=== PATIENT | male | born 1975 | race Caucasian/White ===

== ENCOUNTER 2023-03-15 16:06 | Outpatient (AMB) | payer OTHER, SELFPAY ==
[2023-03-15 16:08] VITALS: BP 140/70; PULSE 94; O2SAT 92; BMI 47.1
--- NOTE | 2023-03-15 16:08 | MHC.PC.OV ---
Vital Signs 03/15/23 16:08 Height 5 ft 7 in Weight 301 lb BMI 47.1 BP 140/70 H Blood Pressure Location Lt brachial Position Sitting Pulse 94 Pulse Source Pulse Oximeter Pulse Oximetry (%) 92 Oxygen Delivery Method Room Air Intake Visit Reasons: Annual PE Intake Note: pt is here for physical. Can Marker Required: No Accompanied by: Self / Same As Patient Allergies No Known Allergies Allergy (Verified 03/15/23 16:18) Medication List - Last Reconciled 03/15/23 by López Perez PA-C dulaglutide (Trulicity) mg subcut insulin glargine (Lantus Solostar U-100 Insulin) 80 units subcut QPM insulin lispro (Humalog KwikPen (U-100) Insulin) 5 units subcut TID lisinopril 30 mg PO DAILY 90 days metformin 1,000 mg PO BID simvastatin 20 mg PO DAILY 90 days Tobacco use date assessed: 03/15/23 Dental Screening Dental Screen Date: 03/15/23 Did you have a dental visit in the last 12 months?: No Did you have a dental problem in the last 6 months where you did not have access to dental care?: No Was dental information given to patient?: Patient has dentist HPI Annual PE HPI Details Blaise is a 47 year old male here today for routine annual physical ? Patient has a past medical history significant for type 2 diabetes, hypertension, morbid obesity, hyperlipidemia. .. Type 2 diabetes:?Now followed by an business unit controller and has decent control of his blood sugars.? Most recent A1c done at his endocrinology office at 7.9. Unfortunately has not lost any weight. ?Still has adjustments in afternoon insulin dosing due to poor diet..? He continues to follow printed circuit boards inspector every 10 weeks due to his retinopathy. .. Hypertension:? At last visit we discussed his elevated blood pressures and increased his lisinopril to 30 mg. Today's blood pressure slightly elevated office. ? He reports that home is blood pressures are 120s to 130 systolic.? He denies any headaches, chest discomfort or shortness of breath.? He does report at times having vision issues to which she sees an printed circuit boards inspector and gets injections in his eyes . hyperLipidemia:? Continues on simvastatin without side effect.? Most recent LDL-? 83 Does have mild microalbuminuria. .. Obesity:? He? does understand his BMI is well above 40 has been having difficulty with reducing his weight.? 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 Colon cancer screen: Will refer to [facility] GI Vaccines: Up-to-date COVID vaccine, flu vaccine, tetanus [facility] Surgical History No pertinent past surgical history Social History (Updated 03/15/23 @ 16:24 by López Perez PA-C) Housing: House Alcohol intake: current Alcohol intake frequency: holidays/special occasions only Alcohol type: beer Patient Tobacco Use Status: Never used Tobacco e-Cigarette/Vaping Use: Never Used Second Hand Smoke Exposure: No service: No Current occupational status: employed Current occupation: [employer] Cognitive needs: No Hearing needs: No Vision needs: No Questionnaire PHQ-9 Over the last 2 weeks, how often have you been bothered by any of the following problems? 1. Little interest or pleasure in doing things: not at all 2. Feeling down, depressed, or hopeless: not at all 3. Trouble falling or staying asleep, or sleeping too much: not at all 4. Feeling tired or having little energy: not at all 5. Poor appetite or overeating: not at all 6. Feeling bad about yourself - or that you are a failure or have let yourself or your family down: not at all 7. Trouble concentrating on things, such as reading the newspaper or watching television: not at all 8. Moving or speaking so slowly that other people could have noticed. Or the opposite - being so fidgety or restless that you have been moving around a lot more than usual: not at all 9. Thoughts that you would be better off or of hurting yourself in some way: not at all Total score: 0 Depression Screening Interpretation: Negative Depression Screening Done: Yes 19613 - PHQ-9 Billing: Yes Source: Developed by Drs. Matt Gonzalez, Lissette Garcia, Pj Mcmillan and colleagues, with an educational tommy from [employer]. Thrive Questionnaire Date Thrive assessed: 03/15/23 I am a: Patient What is your living situation today?: I have a steady place to live Within the past 12 months, did the food you bought not last and you didn't have the money to get more?: Never true Within the past 12 months, did you worry whether your food would run out before you got money to buy more?: Never true Do you have trouble paying for medicines?: No Do you have trouble getting transportation to medical appointments?: No Do you have trouble paying your heating and electricity bill?: No Do you have trouble taking care of your child, family member or friend?: No Do you have trouble with day-to-day activities such as bathing, preparing meals, shopping, managing finances, etc.?: No Are you currently unemployed and looking for a job?: No Are you interested in more education?: No Please select the resources that you would like help with: None Currently or been in a relationship where the following occur: no concerns reported AUDIT C Alcohol Use Questionnaire (AUDIT-C) 1. How often do you have a drink containing alcohol?: Monthly or less 2. How many drinks containing alcohol do you have on a typical day when you are drinking?: 1 or 2 3. How often do you have six or more drinks on one occasion?: Never Total Score: 1 HARISH-7 AMB Questionnaire HARISH-7 Date HARISH - 7 assessed: 03/15/23 Feeling nervous, anxious, or on edge: 0 = Not at all Not being able to stop or control worryin = Not at all Worrying too much about different things: 0 = Not at all Trouble relaxin = Not at all Being so restless that it is hard to sit still: 0 = Not at all Becoming easily annoyed or irritable: 0 = Not at all Feeling afraid as if something awful might happen: 0 = Not at all Total HARISH-7 score (0-4 normal; 5-9 mild; 10-14 moderate; 15-21 severe): 0 Source: Developed by Drs. Matt Gonzalez, Lissette Garcia, Pj Mcmillan and colleagues, with an educational tommy from [employer]. HARISH-7 Assessment Billing HARISH-7 Assessment Tool: HARISH-7 Assessment 35048 Review of Systems Const Denies body aches, Denies chills, Denies excessive sweating, Denies fatigue, Denies fever(s) and Denies headache(s) Eyes Denies blurry vision ENT Denies dysphagia, Denies vertigo, Denies dizziness, Denies headache(s), Denies hearing loss and Denies tinnitus Card Denies chest pain, Denies chest pain with activity, Denies syncope, Denies irregular heart rhythm and Denies dyspnea Resp Denies chest congestion, Denies cough, Denies hemoptysis, Denies dyspnea and Denies wheezing GI Denies abdominal pain, Denies melena, Denies hematochezia, Denies coffee ground emesis, Denies dysphagia, Denies diarrhea, Denies nausea and Denies vomiting Denies difficulty urinating, Denies dysuria, Denies urinary frequency, Denies urinary hesitancy and Denies urinary urgency Musc Denies arthralgias, Denies limited range of motion, Denies muscle cramps and Denies muscle weakness Skin/Breast Denies rash and Denies skin ulcer Neuro Denies Abnormal speech present, Denies confusion, Denies vertigo, Denies dizziness, Denies syncope, Denies headache(s), Denies memory loss and Denies seizure-like activity Psych Denies anxiety, Denies confusion, Denies depression, Denies memory loss, Denies panic attacks and Denies paranoia Endo Denies excessive sweating, Denies fatigue, Denies flushing, Denies polydipsia and Denies polyuria Aller/Immun Denies wheezing Physical exam (Primary Care) Vital Signs: Last Vital Signs Pulse 94 03/15/23 16:08 BP 140/70 H 03/15/23 16:08 Pulse Ox 92 03/15/23 16:08 Oxygen Delivery Method Room Air 03/15/23 16:08 BMI result Body Mass Index 47.1 BMI Assessment/Plan discussion: High Tobacco/Smoking Status: Tobacco use Status Tobacco use date assessed 03/15/23 03/15/23 16:14 Patient Tobacco Use Status Never used Tobacco 03/15/23 16:24 Tobacco use type 08/21/22 09:38 e-Cigarette/Vaping Use Never Used 03/15/23 16:24 PHQ-9: PHQ-9 Score PHQ-9: Total score 0 03/15/23 16:32 Depression Screening Interpretation: Negative Thrive Assessment: Date of Thrive Assessment Date Thrive assessed 03/15/23 03/15/23 16:14 Currently or been in a relationship where the following occur: no concerns reported Const Other: MORBIDLY OBESE General: cooperative, comfortable, no acute distress, alert and awake; No confusion Orientation/consciousness: oriented to person, oriented to place, patient oriented x3 and No confusion HENMT Head: Yes normocephalic Ears: external ears normal and TM's normal bilaterally Face and sinus: No sinus tenderness Mouth: Normal oral and palatal mucosa present and tongue normal Teeth and gingiva: dentition normal and gingiva normal Throat: Yes posterior oropharynx normal, Yes tonsils normal and Yes uvula midline Eyes Conjunctivae: conjunctivae normal Sclerae: sclerae normal Pupils: Equal, round and reactive pupils present EOM: EOMs intact bilaterally Direct Ophthalmoscopy: No no photophobia Neck Neck: Yes no lymphadenopathy, No tender and Yes no JVD Thyroid: Thyroid normal Carotids: no bruits Chest Chest palpation & inspection: no tenderness Resp Effort & Inspection: normal respiratory effort, no audible wheezes, not labored and no stridor Auscultation: no crackles, no rales, no rhonchi and no wheezes Cardio Jugular venous distension: no JVD Rate: regular rate, not bradycardic and not tachycardic Rhythm: regular rhythm Bruits: no carotid bruits Peripheral pulses: Peripheral pulses 2+ throughout GI Inspection: Yes normal to inspection, No abdominal wall ecchymosis and No visible herniation Palpation (GI): Soft to palpation, nontender, no guarding, not rigid and No hepatosplenomegaly present Auscultation: normoactive bowel sounds General: Yes no CVA tenderness Back/Spine/Pelvis Back: no CVA tenderness and No back tenderness Cervical Spine: cervical ROM normal Thoracic/Lumbar Spine: thoracic and lumbar spine normal to inspection, straight leg raise negative bilaterally, No thoraco-lumbar ROM limited and No lumbar spinal tenderness Skin Lesions: no lesions Rashes: no rashes Wounds: no wounds Neuro General: oriented to person, oriented to place, patient oriented x3, CN's II-XI intact bilaterally and No confusion Cranial nerves: Yes Equal, round and reactive pupils present and Yes Normal accommodation reflex present Cognition (Neuro): normal cognition Speech: No Abnormal speech present Gait exam (Neuro): Normal gait present Motor exam (neuro): 5/5 motor strength present throughout Extrem Right upper extremity: full ROM; no cyanosis Left upper extremity: full ROM; no cyanosis Right lower extremity: no edema Left lower extremity: no edema Psych Appearance: grossly normal Mental Status: mental status grossly normal Affect: normal affect Attitude: cooperative Thought process: Normal thought process present Assessment and Plan Assessment & Plan (1) Annual physical exam: Code(s): Z00.00 - Encounter for general adult medical examination without abnormal findings (2) DMII (diabetes mellitus, type 2): Code(s): E11.9 - Type 2 diabetes mellitus without complications Qualifiers: Diabetes mellitus complication detail: with microalbuminuria Diabetes mellitus complication status: with kidney complications Diabetes mellitus termite control service representative insulin use: with mcc use Qualified Code(s): E11.29 - Type 2 diabetes mellitus with other diabetic kidney complication; R80.9 - Proteinuria, unspecified; Z79.4 - group home (current) use of insulin Plan: Patient followed by Endocrinology, reports his blood sugars are 90s in the a.m. and 130s to 160s in the afternoons. Continues on fairly high doses of insulin and highest dose Trulicity.. Goal A1c to be below 7.0 (3) HTN (hypertension): Code(s): I10 - Essential (primary) hypertension Qualifiers: Hypertension type: primary hypertension Qualified Code(s): I10 - Essential (primary) hypertension Plan: Patient's blood pressure elevated today in office. Blood pressures have been better since increasing his lisinopril dose. He reports home readings are 130s systolic, 70s diastolic. He does feel nervous coming into MD appointment and feels that his blood pressure elevated is due to white coat hypertension. Will continue his current dose of lisinopril 30mg. Goal blood pressure to be below 140/90 (4) HLD (hyperlipidemia): Code(s): E78.5 - Hyperlipidemia, unspecified Qualifiers: Hyperlipidemia type: mixed hyperlipidemia Qualified Code(s): E78.2 - Mixed hyperlipidemia Plan: Patient's most recent fasting lipid panel acceptable with LDL 80. Goal LDL to remain below 100 (5) Obese: Code(s): E66.9 - Obesity, unspecified Qualifiers: Body mass index: BMI 45.0-49.9 Obesity classification: adult class 3 (BMI >= 40) Obesity type: due to excess calories Serious obesity comorbidity presence: with serious comorbidity Qualified Code(s): E66.01 - Morbid (severe) obesity due to excess calories; Z68.42 - Body mass index [BMI] 45.0-49.9, adult Plan: Patient's BMI above 40 and he does understand he needs to continue to work on better eating habits and being more physically active to reduce his weight. (6) Colon cancer screening: Code(s): Z12.11 - Encounter for screening for malignant neoplasm of colon Plan: Willing to do colonoscopy. Needs to get his service done at [facility]. Orders: Orders Lipid Panel 03/15/23 E78.2 - Mixed hyperlipidemia Microalbumin, Random (w Creat) 03/15/23 E11.29 - Type 2 diabetes mellitus with other diabetic kidney complication, R80.9 - Proteinuria, unspecified, Z79.4 - adjunct faculty for medical terminology (current) use of insulin Comprehensive [place]. Panel Fast 03/15/23 E11.29 - Type 2 diabetes mellitus with other diabetic kidney complication, R80.9 - Proteinuria, unspecified, Z79.4 - adjunct faculty for medical terminology (current) use of insulin Complete Blood Count no Diff 03/15/23 E11.29 - Type 2 diabetes mellitus with other diabetic kidney complication, R80.9 - Proteinuria, unspecified, Z79.4 - group home (current) use of insulin Referrals Gastroenterology Referral Z12.11 - Encounter for screening for malignant neoplasm of colon Coding Level of Care Code Est Pt Prev Care 40-64y([id number]) Diagnoses Annual physical exam Z00.00 Type 2 diabetes mellitus with microalbuminuria, with long-term current use of insulin E11.29; R80.9; Z79.4 Diabetes mellitus complication detail: with microalbuminuria Diabetes mellitus complication status: with kidney complications Diabetes mellitus termite control service representative insulin use: with termite control service representative use Primary hypertension I10 Hypertension type: primary hypertension Mixed hyperlipidemia E78.2 Hyperlipidemia type: mixed hyperlipidemia Class 3 severe obesity due to excess calories with serious comorbidity and body mass index (BMI) of 45.0 to 49.9 in adult E66.01; Z68.42 Body mass index: BMI 45.0-49.9 Obesity classification: adult class 3 (BMI >= 40) Obesity type: due to excess calories Serious obesity comorbidity presence: with serious comorbidity Colon cancer screening Z12.11 Additional Codes HARISH-7 Assessment Billing - HARISH-7 Assessment Tool: HARISH-7 Assessment [id number] ([id number])
== END 2023-03-15 16:56 | disposition home or self-care (01) ==
PROVIDERS: Visit Provider Physician Assistant
DX: Z00.00 Encounter for general adult medical examination without abnormal findings (principal); E11.29 Type 2 diabetes mellitus with other diabetic kidney complication; Z79.4 Long term (current) use of insulin; E66.01 Morbid (severe) obesity due to excess calories; Z68.42 Body mass index [BMI] 45.0-49.9, adult; R80.9 Proteinuria, unspecified; I10 Essential (primary) hypertension; E78.2 Mixed hyperlipidemia; Z12.11 Encounter for screening for malignant neoplasm of colon
CPT/HCPCS: 99396

== ENCOUNTER 2024-03-20 15:18 | Outpatient (AMB) | payer OTHER, SELFPAY ==
[2024-03-20 15:56] VITALS: BP 132/74; PULSE 99; O2SAT 94; BMI 47.2
--- NOTE | 2024-03-20 15:56 | A.OFFPC_ITS ---
Vital Signs 03/20/24 15:56 Height 5 ft 7 in Weight 301 lb 2 oz BMI 47.2 BP 132/74 Blood Pressure Location Lt brachial Position Sitting Pulse 99 Pulse Source Pulse Oximeter Pulse Oximetry (%) 94 Oxygen Delivery Method Room Air Intake Visit Reasons: pe Intake Note: Patient is here today for a physical. 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 Required: No Accompanied by: Self / Same As Patient Allergies No Known Allergies Allergy (Verified 03/20/24 16:05) Medication List - Last Reconciled 03/20/24 by López Perez PA-C dulaglutide (Trulicity) mg subcut insulin glargine (Lantus Solostar U-100 Insulin) 80 units subcut QPM insulin lispro (Humalog KwikPen (U-100) Insulin) 5 units subcut TID lisinopril 30 mg PO DAILY 90 days metformin 1,000 mg PO BID simvastatin 20 mg PO DAILY 90 days Tobacco use date assessed: 03/15/23 Dental Screening Dental Screen Date: 03/15/23 HPI pe HPI Details Blaise is a 48 year old male here today for routine annual physical ? Patient has a past medical history significant for type 2 diabetes, hypertension, morbid obesity, hyperlipidemia. .. Type 2 diabetes:?Now followed by an machine clothing worker at [facility].? Most recent A1c done at his endocrinology office at 8.4. Unfortunately has not lost any weight. He reports he has been out of Trulicity for several months due to ph armacy availability. ?Still has adjustments in afternoon insulin dosing due to poor diet..? 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 .. Hypertension:? At last visit we discussed his elevated blood pressures and increased his lisinopril to 30 mg. Today's blood pressure acceptable in office. ? He reports that home is blood pressures are 120s to 130 systolic.? He denies any headaches, chest discomfort or shortness of breath.? He does report at times having vision issues to which she sees an wholesale parts salesperson and gets injections in his eyes . hyperLipidemia:? Continues on simvastatin without side effect.? Most recent LDL- ? 83 Does have mild microalbuminuria. .. Obesity:? He? does understand his BMI is well above 40 has been having difficulty with reducing his weight.? 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 Colon cancer screen: Trying to get an appointment for [facility]- he reports he is on a waiting list Vaccines: Up-to-date COVID vaccine, flu vaccine, tetanus PFSH Surgical History No pertinent past surgical history Social History Housing: House Alcohol intake: current Alcohol intake frequency: holidays/special occasions only Alcohol type: beer Patient Tobacco Use Status: Never used Tobacco e-Cigarette/Vaping Use: Never Used Second Hand Smoke Exposure: No service: No Current occupational status: employed Current occupation: [employer] Cognitive needs: No Hearing needs: No Vision needs: No Questionnaire PHQ-9 Over the last 2 weeks, how often have you been bothered by any of the following problems? 1. Little interest or pleasure in doing things: not at all 2. Feeling down, depressed, or hopeless: not at all 3. Trouble falling or staying asleep, or sleeping too much: not at all 4. Feeling tired or having little energy: not at all 5. Poor appetite or overeating: not at all 6. Feeling bad about yourself - or that you are a failure or have let yourself or your family down: not at all 7. Trouble concentrating on things, such as reading the newspaper or watching television: not at all 8. Moving or speaking so slowly that other people could have noticed. Or the opposite - being so fidgety or restless that you have been moving around a lot more than usual: not at all 9. Thoughts that you would be better off or of hurting yourself in some way: not at all Total score: 0 Depression Screening Interpretation: Negative Depression Screening Done: Yes 64067 - PHQ-9 Billing: Yes Source: Developed by Drs. Matt Gonzalez, Lissette Garcia, Pj Mcmillan and colleagues, with an educational tommy from [employer]. Thrive Questionnaire Date Thrive assessed: 03/20/24 I am a: Patient What is your living situation today?: I have a steady place to live Within the past 12 months, did the food you bought not last and you didn't have the money to get more?: Never true Within the past 12 months, did you worry whether your food would run out before you got money to buy more?: Never true Do you have trouble paying for medicines?: No Do you have trouble getting transportation to medical appointments?: No Do you have trouble paying your heating and electricity bill?: No Do you have trouble taking care of your child, family member or friend?: No Do you have trouble with day-to-day activities such as bathing, preparing meals, shopping, managing finances, etc.?: No Are you currently unemployed and looking for a job?: No Are you interested in more education?: No Please select the resources that you would like help with: None Currently or been in a relationship where the following occur: No concerns reported THRIVE Score: 0 AUDIT C Alcohol Use Questionnaire (AUDIT-C) 1. How often do you have a drink containing alcohol?: Monthly or less 2. How many drinks containing alcohol do you have on a typical day when you are drinking?: 1 or 2 3. How often do you have six or more drinks on one occasion?: Never Total Score: 1 HARISH-7 AMB Questionnaire HARISH-7 Date HARISH - 7 assessed: 03/20/24 Feeling nervous, anxious, or on edge: 0 = Not at all Not being able to stop or control worryin = Not at all Worrying too much about different things: 0 = Not at all Trouble relaxin = Not at all Being so restless that it is hard to sit still: 0 = Not at all Becoming easily annoyed or irritable: 0 = Not at all Feeling afraid as if something awful might happen: 0 = Not at all Total HARISH-7 score (0-4 normal; 5-9 mild; 10-14 moderate; 15-21 severe): 0 Source: Developed by Drs. Matt Gonzalez, Lissette Garcai, Pj Mcmillan and colleagues, with an educational tommy from [employer]. HARISH-7 Assessment Billing HARISH-7 Assessment Tool: HARISH-7 Assessment 80418 Review of Systems Const Denies body aches, Denies chills, Denies excessive sweating, Denies fatigue, Denies fever(s) and Denies headache(s) Eyes Denies blurry vision ENT Denies dysphagia, Denies vertigo, Denies dizziness, Denies headache(s), Denies hearing loss and Denies tinnitus Card Denies chest pain, Denies chest pain with activity, Denies syncope, Denies irregular heart rhythm and Denies dyspnea Resp Denies chest congestion, Denies cough, Denies hemoptysis, Denies dyspnea and Denies wheezing GI Denies abdominal pain, Denies melena, Denies hematochezia, Denies coffee ground emesis, Denies dysphagia, Denies diarrhea, Denies nausea and Denies vomiting Denies difficulty urinating, Denies dysuria, Denies urinary frequency, Denies urinary hesitancy and Denies urinary urgency Musc Denies arthralgias, Denies limited range of motion, Denies muscle cramps and Denies muscle weakness Skin/Breast Denies rash and Denies skin ulcer Neuro Denies Abnormal speech present, Denies confusion, Denies vertigo, Denies dizziness, Denies syncope, Denies headache(s), Denies memory loss and Denies seizure-like activity Psych Denies anxiety, Denies confusion, Denies depression, Denies memory loss, Denies panic attacks and Denies paranoia Endo Denies excessive sweating, Denies fatigue, Denies flushing, Denies polydipsia and Denies polyuria Aller/Immun Denies wheezing Physical exam (Primary Care) Vital Signs: Last Vital Signs Pulse 99 03/20/24 15:56 BP 132/74 03/20/24 15:56 Pulse Ox 94 03/20/24 15:56 Oxygen Delivery Method Room Air 03/20/24 15:56 BMI result Body Mass Index 47.2 BMI Assessment/Plan discussion: High BMI High, discussed plan: lifestyle, weight reduction, dietary and physical activity Tobacco/Smoking Status: Tobacco use Status Tobacco use date assessed 03/15/23 03/20/24 15:58 Patient Tobacco Use Status Never used Tobacco 03/20/24 15:58 Tobacco use type 08/21/22 09:38 e-Cigarette/Vaping Use Never Used 03/20/24 15:58 PHQ-9: PHQ-9 Score PHQ-9: Total score 0 03/20/24 16:49 Depression Screening Interpretation: Negative Thrive Assessment: Date of Thrive Assessment Date Thrive assessed 03/20/24 03/20/24 15:59 Currently or been in a relationship where the following occur: No concerns reported Const General: cooperative, comfortable, no acute distress, alert and awake; No confusion Orientation/consciousness: oriented to person, oriented to place, patient oriented x3 and No confusion HENMT Head: Yes normocephalic Ears: external ears normal and TM's normal bilaterally Face and sinus: No sinus tenderness Mouth: Normal oral and palatal mucosa present and tongue normal Teeth and gingiva: dentition normal and gingiva normal Throat: Yes posterior oropharynx normal, Yes tonsils normal and Yes uvula midline Eyes Conjunctivae: conjunctivae normal Sclerae: sclerae normal Pupils: Equal, round and reactive pupils present EOM: EOMs intact bilaterally Direct Ophthalmoscopy: No no photophobia Neck Neck: Yes no lymphadenopathy, No tender and Yes no JVD Thyroid: Thyroid normal Carotids: no bruits Chest Chest palpation & inspection: no tenderness Resp Effort & Inspection: normal respiratory effort, no audible wheezes, not labored and no stridor Auscultation: no crackles, no rales, no rhonchi and no wheezes Cardio Jugular venous distension: no JVD Rate: regular rate, not bradycardic and not tachycardic Rhythm: regular rhythm Bruits: no carotid bruits Peripheral pulses: Peripheral pulses 2+ throughout GI Inspection: Yes normal to inspection, No abdominal wall ecchymosis and No visible herniation Palpation (GI): Soft to palpation, nontender, no guarding, not rigid and No hepatosplenomegaly present Auscultation: normoactive bowel sounds General: Yes no CVA tenderness Back/Spine/Pelvis Back: no CVA tenderness and No back tenderness Cervical Spine: cervical ROM normal Thoracic/Lumbar Spine: thoracic and lumbar spine normal to inspection, straight leg raise negative bilaterally, No thoraco-lumbar ROM limited and No lumbar spinal tenderness Skin Lesions: no lesions Rashes: no rashes Wounds: no wounds Neuro General: oriented to person, oriented to place, patient oriented x3, CN's II-XI intact bilaterally and No confusion Cranial nerves: Yes Equal, round and reactive pupils present and Yes Normal ac commodation reflex present Cognition (Neuro): normal cognition Speech: No Abnormal speech present Gait exam (Neuro): Normal gait present Motor exam (neuro): 5/5 motor strength present throughout Extrem Right upper extremity: full ROM; no cyanosis Left upper extremity: full ROM; no cyanosis Right lower extremity: no edema Left lower extremity: no edema Psych Appearance: grossly normal Mental Status: mental status grossly normal Affect: normal affect Attitude: cooperative Thought process: Normal thought process present Office Procedures Flu Questionnaire Does the patient have a severe egg allergy?: No Immunizations Fluarix Triv [id number] (PF) 45 mcg (15 mcg x 3)/0.5 mL IM syringe Performing Provider: López Perez PA-C Performing Location: [facility] – [place] [facility] Documented (not given) by: ALBAN Gallegos on 03/20/24 16:00 Reason Not Given: Received Previously Coding Level of Care Code Est Pt Prev Care 40-64y(91179) Diagnoses Annual physical exam Z00.00 Type 2 diabetes mellitus with microalbuminuria, with long-term current use of insulin E11.29; R80.9; Z79.4 Diabetes mellitus complication detail: with microalbuminuria Diabetes mellitus complication status: with kidney complications Diabetes mellitus chcf insulin use: with tank terminal gauger use Primary hypertension I10 Hypertension type: primary hypertension Mixed hyperlipidemia E78.2 Hyperlipidemia type: mixed hyperlipidemia Class 3 obesity E66.813 Additional Codes HARISH-7 Assessment Billing - HARISH-7 Assessment Tool: HARISH-7 Assessment 52558 ([id number]) PHQ-9 - 03871 - PHQ-9 Billing: Yes ([id number]) Assessment & Plan Assessment & Plan (1) Annual physical exam: Code(s): Z00.00 - Encounter for general adult medical examination without abnormal findings Category: Medical Plan: As per HPI (2) DMII (diabetes mellitus, type 2): Code(s): E11.9 - Type 2 diabetes mellitus without complications Category: Medical Qualifiers: Diabetes mellitus complication detail: with microalbuminuria Diabetes mellitus complication status: with kidney complications Diabetes mellitus tank terminal gauger insulin use: with tank terminal gauger use Qualified Code(s): E11.29 - Type 2 diabetes mellitus with other diabetic kidney complication; R80.9 - Proteinuria, unspecified; Z79.4 - 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 He reports most recent A1c at 8.4. He reports being out of Trulicity for 7 months due pharmacy unavailability. Recently restarted Trulicity over last 3 months. (3) HTN (hypertension): Code(s): I10 - Essential (primary) hypertension Category: Medical Qualifiers: Hypertension type: primary hypertension Qualified Code(s): I10 - Essential (primary) hypertension Plan: Patient's blood pressure acceptable today in office. Will continue current dose of antihypertensive medication with goal blood pressure to remain below 140/90 (4) HLD (hyperlipidemia): Code(s): E78.5 - Hyperlipidemia, unspecified Category: Medical Qualifiers: Hyperlipidemia type: mixed hyperlipidemia Qualified Code(s): E78.2 - Mixed hyperlipidemia Plan: Patient's most recent lipid panel showing good control of his total cholesterol and LDL. Will continue his current dose of simvastatin with goal LDL to remain below 100 (5) Class 3 obesity: Code(s): E66.813 - Obesity, class 3 Category: Medical Plan: Patient does understand his BMI is over 40 and will work on being more physically active and adapting to better eating habits to reduce his weight. 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 Panel Fast 03/20/24 I10 - Essential (primary) hypertension Lipid Panel 03/20/24 E78.2 - Mixed hyperlipidemia Prostate Specific Antigen Scr 03/20/24 E11.29 - Type 2 diabetes mellitus with other diabetic kidney complication, R80.9 - Proteinuria, unspecified, Z12.5 - Encounter for screening for malignant neoplasm of prostate, Z79.4 - group home (current) use of insulin
== END 2024-03-20 16:25 | disposition home or self-care (01) ==
PROVIDERS: PCP Physician Assistant; Visit Provider Physician Assistant
DX: Z23 Encounter for immunization (principal)

== ENCOUNTER → 2024-03-20 15:18 | Outpatient (BNVA) | payer OTHER, SELFPAY | PROVIDERS: PCP Physician Assistant; Visit Provider Physician Assistant | DX: Z00.00 Encounter for general adult medical examination without abnormal findings (principal); E11.29 Type 2 diabetes mellitus with other diabetic kidney complication; R80.9 Proteinuria, unspecified; I10 Essential (primary) hypertension; E78.2 Mixed hyperlipidemia; E66.813 Obesity, class 3; Z79.4 Long term (current) use of insulin; Z79.899 Other long term (current) drug therapy | CPT/HCPCS: 90471; 96127 ==